=== PATIENT | female | born 1965 | race Caucasian/White ===

== ENCOUNTER 2022-02-19 13:35 | Inpatient (IN) ==
[2022-02-19] MEDS: Midazolam HCl 50 MG/50 ML IV.SOLN IVC SCH (15:15)
[2022-02-19] MEDS ORDERED: Acetaminophen 325 MG TABLET PO PRN (15:48)
[2022-02-19] MEDS ORDERED: Albuterol 2.5 MG/3 ML NEBULIZER IH PRN (15:48)
[2022-02-19] MEDS ORDERED: Ipratropium/Albuterol Neb 3 ML IH ONE (15:48)
[2022-02-19] MEDS ORDERED: Artificial Tears SOLN 15 ML BOTTLE BOTH EYES PRN (15:48)
[2022-02-19] MEDS ORDERED: Naloxone 0.4 MG/ML INJ IVP PRN (15:48)
[2022-02-19] MEDS ORDERED: Ipratropium/Albuterol Neb 3 ML ONE (16:09)
[2022-02-19] MEDS: Ipratropium/Albuterol Neb 3 ML IH SCH ×2 (16:38→20:21)
[2022-02-19 16:43] LABS: ABG Base Excess -3 mEq/L (-2 to 3); ABG HCO3 26 mEq/L (21-27); ABG Oxygen Saturation 95 % (95-98); ABG PCO2 60 mmHg (35-45); ABG PH 7.24 pH Units (7.32-7.45); ABG PO2 94 mmHg (85-104); ABG TCO2 28 mEq/L (20-26); Blood Gas Modality ASSIST CONTROL; Blood Gas VT 500 cc
[2022-02-19] MEDS: Pantoprazole 40 MG VIAL IVP SCH (17:40)
[2022-02-19] MEDS: Artificial Tears SOLN 15 ML BOTTLE BOTH EYES SCH ×3 (17:40→23:28)
[2022-02-19] MEDS: methylPREDNISolone 125 MG/2 ML VIAL IVP SCH ×2 (17:41→23:29)
[2022-02-19] MEDS: *HR* Heparin 5,000 UNIT/ML VIAL SQ SCH ×2 (17:43→23:28)
[2022-02-19 17:45] LABS: Bacteria,Urine Few per hpf (None-Few); Bilirubin,Urine Negative (Negative); Blood,Urine Moderate (Negative); Clarity,Urine Clear (Clear); Color,Urine Light-Yellow (Yellow); Glucose,Urine (UA) 300 mg/dL (Normal); Ketones,Urine Negative (Negative); Leukocyte Esterase,Urine Negative (Negative); Mucus,Urine Few per lpf (None-Few); Nitrite,Urine Negative (Negative); Protein,Urine >=300 mg/dL (Neg-Trace); RBC,Urine 30-50 per hpf (0-3); Specific Gravity,Urine > 1.030 (1.010-1.025); Squamous Epithelial Cell,Urine Few per hpf (None-Few); Transitional Epi Cells,Urine Few per hpf (None-Few); Urobilinogen,Urine Normal (Normal); WBC,Urine 50-100 per hpf (0-3)
[2022-02-19] MEDS: Doxycycline 100 MG in 0.9 % Sodium Chloride Mini Bag 100 ML IVPB SCH (17:48)
[2022-02-19 18:29] LABS: VBG Ionized Calcium 1.11 mmol/L (1.15-1.35)
[2022-02-19 18:44] LABS: Prothrombin Time 11.1 Seconds (9.4-12.1)
[2022-02-19 18:46] LABS: Alanine Aminotransferase 15 Units/L (7-52); Albumin/Globulin Ratio 1.9 (1.1-2.2); Alkaline Phosphatase 67 Units/L (34-104); Aspartate Amino Transferase 20 Units/L (13-39); BUN/Creatinine Ratio 17 (6-26); Bilirubin,Indirect 0.3 mg/dL (0.0-1.0); Bilirubin,Total 0.3 mg/dL (0.3-1.0); Blood Urea Nitrogen 15 mg/dL (6-20); Calcium 8.2 mg/dL (8.6-10.3); Carbon Dioxide 23 mEq/L (23-29); Chloride 103 mEq/L (98-107); Globulin 2.1 g/dL (2.4-3.5); Glucose 226 mg/dL (70-105); Magnesium 2.9 mg/dL (1.6-2.6); Osmolality,Calculated 288 (280-300); Phosphorous 3.6 mg/dL (2.7-4.5); Potassium 4.3 mEq/L (3.5-5.1); Sodium 135 mEq/L (136-145); Total Protein 6.1 g/dL (6.4-8.9); eGFR For African Americans > 60 (> 60); eGFR For Non-African Americans > 60 (> 60)
[2022-02-19 18:47] LABS: Activated Partial Thrombo Time 31.8 Seconds (26.0-36.0)
[2022-02-19] MEDS: Chlorhexidine Rinse 15 ML MOUTHWASH MM SCH (19:51)
[2022-02-19 20:28] LABS: Basophils % 0.2 %; Hematocrit 45.2 % (35.3-44.9); Hemoglobin 14.9 g/dL (11.5-15.4); Immature Granulocytes % 0.6 % (0-4); Lymphocytes # 0.4 K/mcL (0.6-4.6); Lymphocytes % 3.1 %; Mean Corpuscular Hemoglobin 32.1 pg (28.0-33.3); Mean Corpuscular Volume 97.4 fL (83.0-100.0); Mean Platelet Volume 8.8 fL (9.4-12.4); Monocytes # 0.5 K/mcL (0.0-1.3); Monocytes % 3.9 %; Neutrophils # 12.2 K/mcL (1.6-8.9); Platelet Count 268 K/mcL (140-400); Red Blood Count 4.64 M/mcL (3.82-4.97); Red Cell Distribution Width 11.9 % (11.5-14.5); Segmented Neutrophils % 92.2 %; White Blood Count 13.2 K/mcL (4.3-11.1)
[2022-02-19 23:42] LABS: ABG Base Excess -4 mEq/L (-2 to 3); ABG HCO3 25 mEq/L (21-27); ABG Oxygen Saturation 94 % (95-98); ABG PCO2 55 mmHg (35-45); ABG PH 7.26 pH Units (7.32-7.45); ABG PO2 85 mmHg (85-104); ABG TCO2 26 mEq/L (20-26); Blood Gas Modality AF; Blood Gas VT 400 cc
[2022-02-20] MEDS: Ipratropium/Albuterol Neb 3 ML IH SCH ×7 (00:12→23:56)
[2022-02-20] MEDS: Midazolam HCl 50 MG/50 ML IV.SOLN IVC SCH ×3 (01:30→19:30)
[2022-02-20 04:28] LABS: ABG Base Excess -2 mEq/L (-2 to 3); ABG HCO3 26 mEq/L (21-27); ABG Oxygen Saturation 96 % (95-98); ABG PCO2 53 mmHg (35-45); ABG PH 7.29 pH Units (7.32-7.45); ABG PO2 88 mmHg (85-104); ABG TCO2 27 mEq/L (20-26); Blood Gas Modality AF; Blood Gas VT 400 cc
[2022-02-20 04:31] LABS: VBG Ionized Calcium 1.05 mmol/L (1.15-1.35)
[2022-02-20] MEDS: Artificial Tears SOLN 15 ML BOTTLE BOTH EYES SCH ×6 (04:48→23:31)
[2022-02-20 05:06] LABS: INR 0.9; Prothrombin Time 10.2 Seconds (9.4-12.1)
[2022-02-20 05:08] LABS: Activated Partial Thrombo Time 28.8 Seconds (26.0-36.0)
[2022-02-20 05:09] LABS: Eosinophils % 0.1 %; Mean Platelet Volume 9.2 fL (9.4-12.4); Monocytes % 2.7 %
[2022-02-20 05:11] LABS: Albumin 4.1 g/dL (3.5-5.7); Albumin/Globulin Ratio 1.6 (1.1-2.2); Bilirubin,Indirect 0.2 mg/dL (0.0-1.0); Bilirubin,Total 0.2 mg/dL (0.3-1.0); Calcium 8.7 mg/dL (8.6-10.3); Globulin 2.6 g/dL (2.4-3.5); Magnesium 2.8 mg/dL (1.6-2.6); Phosphorous 3.9 mg/dL (2.7-4.5); Potassium 4.5 mEq/L (3.5-5.1); Total Protein 6.7 g/dL (6.4-8.9)
[2022-02-20 05:11] LABS: Basophils % 0.1 %; Hematocrit 45.9 % (35.3-44.9); Hemoglobin 14.9 g/dL (11.5-15.4); Immature Granulocytes % 0.6 % (0-4); Lymphocytes % 4.4 %; Mean Corpuscular HGB Conc 32.5 g/dL (31.6-35.5); Mean Corpuscular Hemoglobin 31.7 pg (28.0-33.3); Mean Corpuscular Volume 97.7 fL (83.0-100.0); Monocytes # 0.3 K/mcL (0.0-1.3); Neutrophils # 11.4 K/mcL (1.6-8.9); Platelet Count 273 K/mcL (140-400); Red Cell Distribution Width 11.8 % (11.5-14.5); Segmented Neutrophils % 92.1 %; White Blood Count 12.4 K/mcL (4.3-11.1)
[2022-02-20] MEDS: Doxycycline 100 MG in 0.9 % Sodium Chloride Mini Bag 100 ML IVPB SCH ×2 (05:15→17:33)
[2022-02-20] MEDS ORDERED: Potassium Phosphate 44 MEQ in 0.9 % Sodium Chloride 250 ML IVPB PRN (05:31)
[2022-02-20 05:46] LABS: Lymphocytes # 0.6 K/mcL (0.6-4.6); Platelet Estimate Normal (Normal)
[2022-02-20] MEDS: Calcium Gluconate 1gm/50mL 1 GM/50 ML BAG IVPB PRN ×2 (05:50→06:36)
[2022-02-20] MEDS: Chlorhexidine Rinse 15 ML MOUTHWASH MM SCH ×2 (08:31→20:14)
[2022-02-20] MEDS: methylPREDNISolone 125 MG/2 ML VIAL IVP SCH ×3 (08:31→23:33)
[2022-02-20] MEDS: *HR* Heparin 5,000 UNIT/ML VIAL SQ SCH ×3 (08:32→23:30)
[2022-02-20] MEDS: Pantoprazole 40 MG VIAL IVP SCH (08:32)
[2022-02-20] MEDS ORDERED: *HR* Dextrose 50 % in Water (Syg) 50 ML SYRINGE IVP PRN (17:07)
[2022-02-20] MEDS ORDERED: D5% in Water 1,000 ML IVC PRN (17:07)
[2022-02-20] MEDS ORDERED: Dextrose 4 GM Chewable Tablets PO PRN ×2 (17:07)
[2022-02-20] MEDS: Insulin LISPRO 300 UNITS/3 ML VIAL SUBQ SCH ×2 (21:00→23:37)
[2022-02-21] MEDS: Midazolam HCl 50 MG/50 ML IV.SOLN IVC SCH ×3 (03:49→20:38)
[2022-02-21] MEDS: Ipratropium/Albuterol Neb 3 ML IH SCH ×5 (03:59→19:58)
[2022-02-21] MEDS: Doxycycline 100 MG in 0.9 % Sodium Chloride Mini Bag 100 ML IVPB SCH ×2 (04:26→16:47)
[2022-02-21] MEDS: Artificial Tears SOLN 15 ML BOTTLE BOTH EYES SCH ×6 (04:26→23:23)
[2022-02-21] MEDS: Insulin LISPRO 300 UNITS/3 ML VIAL SUBQ SCH ×6 (04:27→23:23)
[2022-02-21 05:11] LABS: ABG Base Excess 0 mEq/L (-2 to 3); ABG HCO3 28 mEq/L (21-27); ABG Oxygen Saturation 92 % (95-98); ABG PCO2 61 mmHg (35-45); ABG PH 7.27 pH Units (7.32-7.45); ABG PO2 76 mmHg (85-104); ABG TCO2 30 mEq/L (20-26); Blood Gas Modality AF; Blood Gas VT 400 cc
[2022-02-21 06:54] LABS: Basophils % 0.2 %; Hematocrit 45.3 % (35.3-44.9); Hemoglobin 14.6 g/dL (11.5-15.4); Lymphocytes # 0.6 K/mcL (0.6-4.6); Lymphocytes % 3.4 %; Mean Corpuscular HGB Conc 32.2 g/dL (31.6-35.5); Mean Corpuscular Hemoglobin 32.2 pg (28.0-33.3); Mean Platelet Volume 9.2 fL (9.4-12.4); Monocytes # 1.2 K/mcL (0.0-1.3); Monocytes % 6.3 %; Neutrophils # 16.4 K/mcL (1.6-8.9); Platelet Count 289 K/mcL (140-400); Red Blood Count 4.53 M/mcL (3.82-4.97); Segmented Neutrophils % 89.1 %; White Blood Count 18.4 K/mcL (4.3-11.1)
[2022-02-21 07:02] LABS: INR 0.9
[2022-02-21 07:05] LABS: Activated Partial Thrombo Time 24.6 Seconds (26.0-36.0)
[2022-02-21 07:05] LABS: VBG Ionized Calcium 0.98 mmol/L (1.15-1.35)
[2022-02-21 07:19] LABS: Alanine Aminotransferase 13 Units/L (7-52); Albumin 4.2 g/dL (3.5-5.7); Albumin/Globulin Ratio 1.6 (1.1-2.2); Alkaline Phosphatase 59 Units/L (34-104); Aspartate Amino Transferase 17 Units/L (13-39); BUN/Creatinine Ratio 39 (6-26); Bilirubin,Indirect 0.2 mg/dL (0.0-1.0); Bilirubin,Total 0.2 mg/dL (0.3-1.0); Blood Urea Nitrogen 32 mg/dL (6-20); Calcium 9.6 mg/dL (8.6-10.3); Carbon Dioxide 26 mEq/L (23-29); Chloride 104 mEq/L (98-107); Globulin 2.7 g/dL (2.4-3.5); Glucose 162 mg/dL (70-105); Magnesium 2.5 mg/dL (1.6-2.6); Osmolality,Calculated 294 (280-300); Phosphorous 3.4 mg/dL (2.7-4.5); Potassium 4.3 mEq/L (3.5-5.1); Sodium 137 mEq/L (136-145); Total Protein 6.9 g/dL (6.4-8.9); eGFR For African Americans > 60 (> 60); eGFR For Non-African Americans > 60 (> 60)
[2022-02-21] MEDS: Chlorhexidine Rinse 15 ML MOUTHWASH MM SCH ×2 (08:43→20:10)
[2022-02-21] MEDS: methylPREDNISolone 125 MG/2 ML VIAL IVP SCH ×3 (08:43→23:22)
[2022-02-21] MEDS: *HR* Heparin 5,000 UNIT/ML VIAL SQ SCH ×3 (08:43→23:22)
[2022-02-21] MEDS: Pantoprazole 40 MG VIAL IVP SCH (08:44)
[2022-02-21] MEDS: Budesonide/Formoterol 160/4.5 1 PUFF INH IH SCH ×2 (11:37→19:59)
[2022-02-22] MEDS: Ipratropium/Albuterol Neb 3 ML IH SCH ×7 (00:09→23:19)
[2022-02-22] MEDS: Artificial Tears SOLN 15 ML BOTTLE BOTH EYES SCH ×6 (03:51→23:49)
[2022-02-22] MEDS: Insulin LISPRO 300 UNITS/3 ML VIAL SUBQ SCH ×6 (03:52→23:49)
[2022-02-22 04:47] LABS: ABG Base Excess 2 mEq/L (-2 to 3); ABG HCO3 29 mEq/L (21-27); ABG Oxygen Saturation 93 % (95-98); ABG PCO2 52 mmHg (35-45); ABG PH 7.36 pH Units (7.32-7.45); ABG PO2 69 mmHg (85-104); ABG TCO2 31 mEq/L (20-26); Blood Gas VT 450 cc
[2022-02-22] MEDS: Doxycycline 100 MG in 0.9 % Sodium Chloride Mini Bag 100 ML IVPB SCH ×2 (05:18→18:03)
[2022-02-22] MEDS: Midazolam HCl 50 MG/50 ML IV.SOLN IVC SCH (05:24)
[2022-02-22] MEDS: Budesonide/Formoterol 160/4.5 1 PUFF INH IH SCH ×2 (07:53→19:49)
[2022-02-22] MEDS: *HR* Heparin 5,000 UNIT/ML VIAL SQ SCH ×3 (08:21→23:49)
[2022-02-22] MEDS: Pantoprazole 40 MG VIAL IVP SCH (08:21)
[2022-02-22] MEDS: methylPREDNISolone 125 MG/2 ML VIAL IVP SCH ×3 (08:21→23:49)
[2022-02-22] MEDS: Chlorhexidine Rinse 15 ML MOUTHWASH MM SCH ×2 (08:21→20:11)
[2022-02-22 09:10] LABS: Basophils % 0.1 %; Hematocrit 47.6 % (35.3-44.9); Hemoglobin 15.5 g/dL (11.5-15.4); Immature Granulocytes % 0.8 % (0-4); Lymphocytes # 0.6 K/mcL (0.6-4.6); Lymphocytes % 3.8 %; Mean Corpuscular HGB Conc 32.6 g/dL (31.6-35.5); Mean Corpuscular Hemoglobin 32.2 pg (28.0-33.3); Mean Platelet Volume 8.8 fL (9.4-12.4); Monocytes % 6.6 %; Neutrophils # 13.6 K/mcL (1.6-8.9); Platelet Count 320 K/mcL (140-400); Red Blood Count 4.81 M/mcL (3.82-4.97); Red Cell Distribution Width 12.1 % (11.5-14.5); Segmented Neutrophils % 88.7 %; White Blood Count 15.3 K/mcL (4.3-11.1)
[2022-02-22 09:16] LABS: VBG Ionized Calcium 1.11 mmol/L (1.15-1.35)
[2022-02-22 09:19] LABS: INR 0.9; Prothrombin Time 10.1 Seconds (9.4-12.1)
[2022-02-22 09:21] LABS: Activated Partial Thrombo Time 26.9 Seconds (26.0-36.0)
[2022-02-22] MEDS: Dexmedetomidine HCl 400 MCG/100 ML MLS IVC SCH ×3 (09:27→22:49)
[2022-02-22 09:29] LABS: Alanine Aminotransferase 14 Units/L (7-52); Albumin 4.2 g/dL (3.5-5.7); Albumin/Globulin Ratio 1.6 (1.1-2.2); Alkaline Phosphatase 58 Units/L (34-104); Aspartate Amino Transferase 14 Units/L (13-39); BUN/Creatinine Ratio 41 (6-26); Bilirubin,Indirect 0.2 mg/dL (0.0-1.0); Bilirubin,Total 0.2 mg/dL (0.3-1.0); Blood Urea Nitrogen 31 mg/dL (6-20); Calcium 9.8 mg/dL (8.6-10.3); Carbon Dioxide 30 mEq/L (23-29); Chloride 104 mEq/L (98-107); Globulin 2.6 g/dL (2.4-3.5); Glucose 186 mg/dL (70-105); Magnesium 2.3 mg/dL (1.6-2.6); Osmolality,Calculated 303 (280-300); Phosphorous 2.5 mg/dL (2.7-4.5); Potassium 4.6 mEq/L (3.5-5.1); Sodium 141 mEq/L (136-145); Total Protein 6.8 g/dL (6.4-8.9); eGFR For African Americans > 60 (> 60); eGFR For Non-African Americans > 60 (> 60)
[2022-02-22] MEDS: FentaNYL (PF) 1,000 MCG/100 ML IV.SOLN IVC SCH ×2 (15:27→21:45)
[2022-02-23] MEDS: Ipratropium/Albuterol Neb 3 ML IH SCH ×6 (03:19→23:18)
[2022-02-23] MEDS: Insulin LISPRO 300 UNITS/3 ML VIAL SUBQ SCH ×6 (03:22→23:47)
[2022-02-23] MEDS: Artificial Tears SOLN 15 ML BOTTLE BOTH EYES SCH ×2 (03:22→08:15)
[2022-02-23 04:08] LABS: ABG Base Excess 7 mEq/L (-2 to 3); ABG HCO3 36 mEq/L (21-27); ABG Oxygen Saturation 96 % (95-98); ABG PCO2 70 mmHg (35-45); ABG PH 7.32 pH Units (7.32-7.45); ABG PO2 90 mmHg (85-104); ABG TCO2 38 mEq/L (20-26); Blood Gas VT 500 cc
[2022-02-23] MEDS: Doxycycline 100 MG in 0.9 % Sodium Chloride Mini Bag 100 ML IVPB SCH ×2 (04:57→18:22)
[2022-02-23 06:49] LABS: VBG Ionized Calcium 1.21 mmol/L (1.15-1.35)
[2022-02-23 07:08] LABS: Basophils % 0.1 %; Hematocrit 43.2 % (35.3-44.9); Immature Granulocytes % 0.6 % (0-4); Lymphocytes # 0.5 K/mcL (0.6-4.6); Mean Corpuscular Hemoglobin 30.7 pg (28.0-33.3); Mean Corpuscular Volume 99.1 fL (83.0-100.0); Mean Platelet Volume 8.8 fL (9.4-12.4); Monocytes # 0.8 K/mcL (0.0-1.3); Monocytes % 7.5 %; Neutrophils # 8.9 K/mcL (1.6-8.9); Platelet Count 278 K/mcL (140-400); Red Blood Count 4.36 M/mcL (3.82-4.97); Red Cell Distribution Width 12.1 % (11.5-14.5); Segmented Neutrophils % 86.8 %; White Blood Count 10.3 K/mcL (4.3-11.1)
[2022-02-23 07:13] LABS: Hemoglobin 13.4 g/dL (11.5-15.4)
[2022-02-23 07:15] LABS: Alanine Aminotransferase 15 Units/L (7-52); Albumin 3.7 g/dL (3.5-5.7); Albumin/Globulin Ratio 1.6 (1.1-2.2); Alkaline Phosphatase 46 Units/L (34-104); Aspartate Amino Transferase 15 Units/L (13-39); BUN/Creatinine Ratio 71 (6-26); Bilirubin,Total 0.2 mg/dL (0.3-1.0); Blood Urea Nitrogen 42 mg/dL (6-20); Calcium 9.1 mg/dL (8.6-10.3); Carbon Dioxide 35 mEq/L (23-29); Chloride 104 mEq/L (98-107); Globulin 2.3 g/dL (2.4-3.5); Glucose 165 mg/dL (70-105); Magnesium 2.5 mg/dL (1.6-2.6); Osmolality,Calculated 308 (280-300); Phosphorous 2.4 mg/dL (2.7-4.5); Sodium 142 mEq/L (136-145); eGFR For African Americans > 60 (> 60); eGFR For Non-African Americans > 60 (> 60)
[2022-02-23 07:16] LABS: INR 0.9; Prothrombin Time 10.3 Seconds (9.4-12.1)
[2022-02-23 07:17] LABS: Activated Partial Thrombo Time 24.8 Seconds (26.0-36.0)
[2022-02-23] MEDS: Budesonide/Formoterol 160/4.5 1 PUFF INH IH SCH ×2 (07:30→23:18)
[2022-02-23] MEDS: *HR* Heparin 5,000 UNIT/ML VIAL SQ SCH ×3 (08:16→23:46)
[2022-02-23] MEDS: Pantoprazole 40 MG VIAL IVP SCH (08:16)
[2022-02-23] MEDS: methylPREDNISolone 125 MG/2 ML VIAL IVP SCH (08:16)
[2022-02-23] MEDS: Dexmedetomidine HCl 400 MCG/100 ML MLS IVC SCH ×3 (12:15→20:17)
[2022-02-23 15:21] LABS: ABG Base Excess 6 mEq/L (-2 to 3); ABG HCO3 32 mEq/L (21-27); ABG Oxygen Saturation 99 % (95-98); ABG PCO2 52 mmHg (35-45); ABG PO2 130 mmHg (85-104); ABG TCO2 34 mEq/L (20-26); Blood Gas Modality avaps; Blood Gas VT 500 cc
[2022-02-23] MEDS: MethylPREDNISolone 40 MG/ML VIAL IVP SCH (18:22)
[2022-02-24] MEDS: Dexmedetomidine HCl 400 MCG/100 ML MLS IVC SCH ×2 (00:54→06:44)
[2022-02-24] MEDS: Ipratropium/Albuterol Neb 3 ML IH SCH ×6 (03:20→23:43)
[2022-02-24] MEDS: Insulin LISPRO 300 UNITS/3 ML VIAL SUBQ SCH ×5 (04:08→20:22)
[2022-02-24] MEDS: MethylPREDNISolone 40 MG/ML VIAL IVP SCH (05:32)
[2022-02-24 05:34] LABS: Basophils % 0.1 %; Hematocrit 42.9 % (35.3-44.9); Hemoglobin 13.7 g/dL (11.5-15.4); Immature Granulocytes % 0.7 % (0-4); Lymphocytes # 1.5 K/mcL (0.6-4.6); Lymphocytes % 16.1 %; Mean Corpuscular HGB Conc 31.9 g/dL (31.6-35.5); Mean Corpuscular Hemoglobin 31.1 pg (28.0-33.3); Mean Corpuscular Volume 97.3 fL (83.0-100.0); Mean Platelet Volume 8.9 fL (9.4-12.4); Monocytes # 0.9 K/mcL (0.0-1.3); Monocytes % 9.4 %; Neutrophils # 6.8 K/mcL (1.6-8.9); Platelet Count 257 K/mcL (140-400); Red Blood Count 4.41 M/mcL (3.82-4.97); Red Cell Distribution Width 12.2 % (11.5-14.5); Segmented Neutrophils % 73.7 %; White Blood Count 9.2 K/mcL (4.3-11.1)
[2022-02-24 05:37] LABS: Prothrombin Time 11.6 Seconds (9.4-12.1)
[2022-02-24 05:40] LABS: Activated Partial Thrombo Time 28.4 Seconds (26.0-36.0)
[2022-02-24 05:47] LABS: Alanine Aminotransferase 29 Units/L (7-52); Albumin 3.6 g/dL (3.5-5.7); Albumin/Globulin Ratio 1.4 (1.1-2.2); Alkaline Phosphatase 43 Units/L (34-104); Aspartate Amino Transferase 34 Units/L (13-39); BUN/Creatinine Ratio 75 (6-26); Bilirubin,Total 0.4 mg/dL (0.3-1.0); Blood Urea Nitrogen 40 mg/dL (6-20); Carbon Dioxide 35 mEq/L (23-29); Chloride 102 mEq/L (98-107); Globulin 2.6 g/dL (2.4-3.5); Glucose 117 mg/dL (70-105); Magnesium 2.3 mg/dL (1.6-2.6); Osmolality,Calculated 301 (280-300); Phosphorous 2.8 mg/dL (2.7-4.5); Potassium 4.9 mEq/L (3.5-5.1); Sodium 140 mEq/L (136-145); Total Protein 6.2 g/dL (6.4-8.9); eGFR For African Americans > 60 (> 60); eGFR For Non-African Americans > 60 (> 60)
[2022-02-24] MEDS: Budesonide/Formoterol 160/4.5 1 PUFF INH IH SCH ×2 (07:19→20:40)
[2022-02-24] MEDS: Pantoprazole 40 MG VIAL IVP SCH (07:46)
[2022-02-24] MEDS: *HR* Heparin 5,000 UNIT/ML VIAL SQ SCH ×2 (07:46→17:55)
[2022-02-24] MEDS ORDERED: Scopolamine Patch 1.5 MG PATCH.TD72 TD ONE (16:02)
[2022-02-24] MEDS: predniSONE 20 MG TABLET PO SCH (16:55)
[2022-02-25] MEDS: *HR* Heparin 5,000 UNIT/ML VIAL SQ SCH ×4 (00:01→23:23)
[2022-02-25] MEDS: Insulin LISPRO 300 UNITS/3 ML VIAL SUBQ SCH ×6 (03:49→23:23)
[2022-02-25] MEDS: Ipratropium/Albuterol Neb 3 ML IH SCH ×6 (04:26→23:04)
[2022-02-25] MEDS: Budesonide/Formoterol 160/4.5 1 PUFF INH IH SCH ×2 (08:06→19:51)
[2022-02-25] MEDS: Pantoprazole 40 MG VIAL IVP SCH (08:08)
[2022-02-25] MEDS: predniSONE 20 MG TABLET PO SCH (08:08)
[2022-02-25] MEDS ORDERED: *HR* LORazepam 2 MG/ML VIAL IVP PRN (11:16)
[2022-02-26] MEDS: Insulin LISPRO 300 UNITS/3 ML VIAL SUBQ SCH ×6 (01:27→20:59)
[2022-02-26] MEDS: Ipratropium/Albuterol Neb 3 ML IH SCH ×6 (04:08→23:41)
[2022-02-26] MEDS: predniSONE 20 MG TABLET PO SCH (07:43)
[2022-02-26] MEDS: Pantoprazole 40 MG VIAL IVP SCH (07:43)
[2022-02-26] MEDS: *HR* Heparin 5,000 UNIT/ML VIAL SQ SCH ×2 (07:45→16:11)
[2022-02-26] MEDS: Budesonide/Formoterol 160/4.5 1 PUFF INH IH SCH ×2 (07:57→20:41)
[2022-02-26 09:55] LABS: BUN/Creatinine Ratio 60 (6-26); Blood Urea Nitrogen 37 mg/dL (6-20); Calcium 9.1 mg/dL (8.6-10.3); Carbon Dioxide 31 mEq/L (23-29); Chloride 101 mEq/L (98-107); Glucose 108 mg/dL (70-105); Osmolality,Calculated 297 (280-300); Potassium 3.9 mEq/L (3.5-5.1); Sodium 139 mEq/L (136-145); eGFR For African Americans > 60 (> 60); eGFR For Non-African Americans > 60 (> 60)
[2022-02-26 10:57] LABS: Estimated Average Glucose 134 mg/dl; Hemoglobin A1C 6.3 %
[2022-02-26] MEDS: lisinopriL 10 MG TABLET PO SCH (11:32)
[2022-02-26] MEDS: Nystatin SUSP 5 ML UD.LIQ PO SCH ×2 (17:07→21:04)
[2022-02-26] MEDS: Chlorhexidine Rinse 15 ML MOUTHWASH MM SCH ×2 (19:53→21:00)
[2022-02-27 01:37] LABS: BUN/Creatinine Ratio 58 (6-26); Blood Urea Nitrogen 36 mg/dL (6-20); Calcium 9.2 mg/dL (8.6-10.3); Carbon Dioxide 32 mEq/L (23-29); Chloride 101 mEq/L (98-107); Glucose 97 mg/dL (70-105); Osmolality,Calculated 298 (280-300); Potassium 3.9 mEq/L (3.5-5.1); Sodium 140 mEq/L (136-145); eGFR For African Americans > 60 (> 60); eGFR For Non-African Americans > 60 (> 60)
[2022-02-27] MEDS: *HR* Heparin 5,000 UNIT/ML VIAL SQ SCH ×4 (02:37→23:15)
[2022-02-27] MEDS: Ipratropium/Albuterol Neb 3 ML IH SCH ×6 (04:28→23:51)
[2022-02-27] MEDS: Budesonide/Formoterol 160/4.5 1 PUFF INH IH SCH ×2 (07:32→20:42)
[2022-02-27] MEDS: Insulin LISPRO 300 UNITS/3 ML VIAL SUBQ SCH ×4 (07:35→20:17)
[2022-02-27] MEDS: Chlorhexidine Rinse 15 ML MOUTHWASH MM SCH ×2 (08:18→20:16)
[2022-02-27] MEDS: Nystatin SUSP 5 ML UD.LIQ PO SCH ×4 (08:18→20:16)
[2022-02-27] MEDS: Pantoprazole 40 MG VIAL IVP SCH (08:19)
[2022-02-27] MEDS: lisinopriL 10 MG TABLET PO SCH (08:19)
[2022-02-27] MEDS: predniSONE 20 MG TABLET PO SCH (08:19)
[2022-02-28] MEDS: Ipratropium/Albuterol Neb 3 ML IH SCH ×6 (04:07→23:56)
[2022-02-28 05:06] LABS: BUN/Creatinine Ratio 49 (6-26); Blood Urea Nitrogen 30 mg/dL (6-20); Calcium 9.4 mg/dL (8.6-10.3); Carbon Dioxide 31 mEq/L (23-29); Chloride 101 mEq/L (98-107); Glucose 122 mg/dL (70-105); Osmolality,Calculated 295 (280-300); Potassium 3.8 mEq/L (3.5-5.1); Sodium 139 mEq/L (136-145); eGFR For African Americans > 60 (> 60); eGFR For Non-African Americans > 60 (> 60)
[2022-02-28] MEDS: Budesonide/Formoterol 160/4.5 1 PUFF INH IH SCH ×2 (07:31→20:03)
[2022-02-28] MEDS: *HR* Heparin 5,000 UNIT/ML VIAL SQ SCH ×3 (07:36→23:50)
[2022-02-28] MEDS: Chlorhexidine Rinse 15 ML MOUTHWASH MM SCH ×2 (07:36→20:10)
[2022-02-28] MEDS: Nystatin SUSP 5 ML UD.LIQ PO SCH ×4 (07:36→20:10)
[2022-02-28] MEDS: Insulin LISPRO 300 UNITS/3 ML VIAL SUBQ SCH ×4 (07:36→20:23)
[2022-02-28] MEDS: predniSONE 20 MG TABLET PO SCH (07:37)
[2022-02-28] MEDS: lisinopriL 10 MG TABLET PO SCH (07:37)
[2022-02-28] MEDS: Pantoprazole 40 MG VIAL IVP SCH (13:10)
[2022-03-01] MEDS: Ipratropium/Albuterol Neb 3 ML IH SCH ×6 (04:10→23:31)
[2022-03-01] MEDS: Budesonide/Formoterol 160/4.5 1 PUFF INH IH SCH ×2 (07:25→19:52)
[2022-03-01] MEDS: Insulin LISPRO 300 UNITS/3 ML VIAL SUBQ SCH ×4 (08:10→21:30)
[2022-03-01] MEDS: Nystatin SUSP 5 ML UD.LIQ PO SCH ×4 (08:16→21:30)
[2022-03-01] MEDS: Chlorhexidine Rinse 15 ML MOUTHWASH MM SCH ×2 (08:16→21:30)
[2022-03-01] MEDS: *HR* Heparin 5,000 UNIT/ML VIAL SQ SCH ×3 (08:16→23:43)
[2022-03-01] MEDS: lisinopriL 10 MG TABLET PO SCH (08:16)
[2022-03-01] MEDS: predniSONE 20 MG TABLET PO SCH (08:17)
[2022-03-01] MEDS ORDERED: Moderna Covid-19 Vaccine 100MCG/0.5mL IM ONE (15:43)
[2022-03-02] MEDS: Ipratropium/Albuterol Neb 3 ML IH SCH ×3 (04:15→11:04)
[2022-03-02] MEDS: Budesonide/Formoterol 160/4.5 1 PUFF INH IH SCH (07:24)
[2022-03-02] MEDS: Insulin LISPRO 300 UNITS/3 ML VIAL SUBQ SCH ×2 (07:27→11:31)
[2022-03-02] MEDS: lisinopriL 10 MG TABLET PO SCH (08:18)
[2022-03-02] MEDS: *HR* Heparin 5,000 UNIT/ML VIAL SQ SCH (08:18)
[2022-03-02] MEDS: Nystatin SUSP 5 ML UD.LIQ PO SCH ×2 (08:18→12:25)
[2022-03-02] MEDS: Chlorhexidine Rinse 15 ML MOUTHWASH MM SCH (08:18)
[2022-03-02] MEDS ORDERED: predniSONE 20 MG TABLET PO SCH (09:00)
[2022-03-02 11:50] VITALS: BP 105/68; PULSE 95; TEMP 98.8; O2SAT 90
[2022-03-05] MEDS ORDERED: predniSONE 10 MG TABLET PO SCH (09:00)
== END 2022-03-02 15:34 | disposition home health service (06) | DRG 208 ==
LOC: ICNU 15:14 → 2NNU 02-24 14:33 → 2ANU 02-26 11:06
PROVIDERS: ADMIT Pediatrics; ATTEND Student in an Organized Health Care Education/Training Program